=== PATIENT | female | born 1945 | race Caucasian/White ===

== ENCOUNTER 2017-10-18 08:54 | Day surgery (SDC) | payer MEDICARE, BC ==
[~2017-10-18 08:54] MED LIST: LIDOCAINE HCL 1% MPF 30 SOL ONE; PROPOFOL 500 MG/50 ML EMU IV ONE
[2017-10-18 10:37] VITALS: RESP 20
[2017-10-18 10:56] VITALS: BP 122/60; PULSE 64; TEMP 97.4; O2SAT 98
== END 2017-10-18 11:10 | disposition home or self-care (01) | DRG 951 ==
LOC: SURG 08:54
PROVIDERS: ATTEND Surgery
DX: Z12.11 Encounter for screening for malignant neoplasm of colon (principal); Z80.0 Family history of malignant neoplasm of digestive organs
CPT/HCPCS: J2001; J2704